=== PATIENT | female | born 1955 | race Caucasian/White ===

== ENCOUNTER 2019-03-20 08:01 | Outpatient (CLI) | payer MEDICARE ==
--- NOTE | 2019-03-20 08:17 | RAD ---
EXAM: Right ankle: 3 views INDICATIONS: Pain COMPARISON: None. FINDINGS: No evidence of fracture at the ankle. Minimal soft tissue swelling. Mild degenerative antoine e at the ankle. There is a transverse fracture at the base of the fifth metatarsal. IMPRESSION: 1. Transverse fracture base fifth metatarsal 2. No fracture at the ankle
== END 2019-03-20 08:02 | disposition home or self-care (01) ==
LOC: RAD-FRANK 08:01
PROVIDERS: ATTEND Nurse Practitioner Family
DX: M25.571 Pain in right ankle and joints of right foot (principal); S92.351A Displaced fracture of fifth metatarsal bone, right foot, initial encounter for closed fracture

== ENCOUNTER 2019-04-23 10:08 | Outpatient (CLI) | payer MEDICARE ==
--- NOTE | 2019-04-23 13:12 | RAD ---
RIGHT FOOT THREE VIEWS: HISTORY: Follow up fifth metatarsal fracture. COMPARISON: Ankle films from 03/20/2019. FINDINGS: There is an un-united fracture involving the base of the fifth metatarsal. There has been distraction of the fracture fragment when compared to the prior study. Degenerative change at the first MTP joint and at the tarsometatarsal joints again noted. No other in terval change. IMPRESSION: Un-united fracture proximal fifth metatarsal with slight distraction of fragments. POS: TPC
== END 2019-04-23 10:09 | disposition home or self-care (01) ==
LOC: RAD-FRANK 10:08
PROVIDERS: ATTEND Nurse Practitioner Family
DX: S99.921D Unspecified injury of right foot, subsequent encounter (principal); S92.351K Displaced fracture of fifth metatarsal bone, right foot, subsequent encounter for fracture with nonunion

== ENCOUNTER 2019-08-04 11:11 | Outpatient (CLI) | payer MEDICARE ==
--- NOTE | 2019-08-04 11:32 | RAD ---
XR Foot Rt 3 View STANDARD HISTORY: Follow up fifth metatarsal fracture FINDINGS: No significant interval healing is noted at the mildly distracted fracture of the base of the fifth m etatarsal since 04/23/2019.
== END 2019-08-04 11:12 | disposition home or self-care (01) ==
LOC: RAD-FRANK 11:11
PROVIDERS: ATTEND Nurse Practitioner Family
DX: S92.351D Displaced fracture of fifth metatarsal bone, right foot, subsequent encounter for fracture with routine healing (principal)

== ENCOUNTER 2020-09-20 10:35 | Outpatient (CLI) | payer MEDICARE, MEDICAID | END 2020-09-20 10:36 | disposition home or self-care (01) | LOC: BICMAMMO 10:35 | PROVIDERS: ATTEND Nurse Practitioner Family | DX: Z12.31 Encounter for screening mammogram for malignant neoplasm of breast (principal) | CPT/HCPCS: 77063; 77067 ==